=== PATIENT | male | born 1960 | race Caucasian/White ===

== ENCOUNTER 2021-12-27 06:03 | Day surgery (SDC) | payer OTHER, SELFPAY ==
[2021-12-27] VITALS (9 sets, daily range): BP systolic 107–167; BP diastolic 61–86; PULSE 69–88; RESP 18–22; TEMP 36.2–37; O2SAT 95–100; BMI 31.9; BMI 31.4
--- NOTE | ~2021-12-27 | FL_ITS ---
EXAMINATION: Intraoperative fluoroscopy CLINICAL INFORMATION: Cystoscopy and stent placement COMPARISON: CT abdomen pelvis December 27, 2021 TECHNIQUE: Intraoperative fluoroscopy was provided for use by Dr. Bob. A total of 2 images were saved to PACS. A radiologist was not present during imaging. Today's dictation is only for administrative purposes to document intraoperative fluoroscopic usage. TOTAL FLUOROSCOPIC TIME: 28 seconds FL/FL guidance in OR FINDINGS~\^^ Intraoperative fluoroscopy provided for use by Dr. Bob. Please see operative note for detailed findings.
--- NOTE | ~2021-12-27 | CT_ITS ---
EXAMINATION: CT ABDOMEN AND PELVIS WITHOUT CONTRAST CLINICAL INFORMATION: Left flank pain. Evaluate for stone. COMPARISON: None TECHNIQUE: Multidetector volumetric imaging was performed from the superior aspect of the liver through the pubic symphysis. Sagittal and coronal reformatted images were obtained on the technologist's workstation. This CT examination was performed using dose optimization techniques as appropriate, variously including the following: *Automated exposure control *Adjustment of mA and/or kV according to patient size (this includes techniques or standardized protocols for targeted exams where dose is matched to indication/reason for exam; i.e. extremities or head) *Use of iterative reconstruction technique DLP: 669 mGy-cm FINDINGS: LUNG BASES: Scattered calcified pleural plaques of each hemithorax could be sequela of remote asbestos exposure. There appears to be a small, normal-sized lymph node along the distal left major fissure. No pleural effusion. LIVER: The liver has normal size, shape, and attenuation. No evidence of liver mass. GALLBLADDER AND BILIARY TREE: Gallbladder has a few calcified stones. No gallbladder wall thickening or pericholecystic fluid. No dilated bile ducts. PANCREAS: Normal. No edema, pancreatic ductal dilatation or mass. SPLEEN: Normal. ADRENAL GLANDS: Normal. KIDNEYS AND URETERS: Kidneys are normal in size. 0.7 cm cortical cyst of the lower pole of the right kidney has a simple appearance on these noncontrast images. No renal imaging follow-up is recommended for a simple cyst. Aulz-yb-cztjnhpj left hydronephrosis and perinephric edema are caused by a 0.6 cm stone within the proximal ureter near level of ureteropelvic junction. BLADDER: No significant urinary bladder findings on this noncontrast examination. A punctate calcification is observed along the anterior bladder wall. BOWEL AND PERITONEUM: Stomach is unremarkable. No dilated loops of bowel. The appendix is normal. No overt bowel wall thickening or mesenteric fat stranding. No free fluid or pneumoperitoneum. ABDOMINAL WALL: A very small fat-containing umbilical hernia is noted. VASCULATURE: Mild atherosclerosis of the abdominal aorta without aneurysm. LYMPH NODES: There are deep inguinal lymph nodes that measure 1 cm short axis dimension on the right and 1.2 cm on the left. A left external iliac lymph node has a short axis measurement of 1 cm and a left common iliac lymph node 0.8 cm. No pathologic sized lymph nodes in the retroperitoneum. PELVIC VISCERA: Prostate gland is grossly unremarkable. No pelvic free fluid. Multiple phleboliths are present in the lower pelvis. SKELETAL: Chondrocalcinosis of the pubic symphysis, hips and lumbar spine. Mild osteoarthritis of the hips. No acute abnormalities in the mildly degenerated spine. CT/CT abdomen pelvis wo IV con IMPRESSION: * Ddjy-bd-feaamtwv left hydronephrosis and perinephric edema are caused by a 0.6 cm stone of the proximal ureter near level of the ureteropelvic junction. * Within the visualized lung bases, there are calcified pleural plaques, which are likely sequela of remote asbestos exposure. No pleural effusion. * The finding of mild deep inguinal and mild iliac lymphadenopathy is of questionable significance.
--- OUTSIDE RECORDS SUMMARY | 2021-12-27 06:58 | XMS_ITS | Continuity of Care Document ---
:1960 Author Organization [facility] Adult Address [address] [place] [address]- Care Team Providers Name Role Phone Mitra ROBERTSON, Rashmi Primary Care Physician [facility] Date(s): 07/17/20 - 08/16/20 [facility] [address] [place] [address]- Allergies, Adverse Reactions, Alerts Substance Reaction Severity Status NKA Active Immunizations Given and Recorded Vaccine Date Status Refusal Reason Influenza Virus Vaccine (oldterm) 11/12/17 Recorded influenza virus vaccine, inactivated 12/28/16 Recorded influenza virus vaccine, inactivated1 03/10/16 Given influenza virus vaccine, inactivated 03/24/15 Given tetanus/diphtheria/pertussis, acel(Tdap) 12/16/16 Given 1Admin Note: joshua and ircardo Medications acetaminophen-hydrocodone 325 mg-10 mg oral tablet 1 tablet, By Mouth, Every 6 hours, PRN for pain, FINANCIAL OPERATIONS ANALYST checked, # 112 tablet, 0 Refills, Maintenance, 08/14/20 16:23:00 EDT, Tablet, [facility] #[id number], may partial fill upon patient request, 1 tablet By Mouth Every 6 hours,x28 days,PRN:for rolf... Start Date: 08/14/20 Stop Date: 09/11/20 Status: Orderedacetaminophen-hydrocodone 325 mg-10 mg oral tablet 1 tablet, By Mouth, Every 6 hours, PRN for pain, OPIATE AGREEMENT DX:M517.0 FINANCIAL OPERATIONS ANALYST checked, # 112 tablet, 0 Refills, Maintenance, 09/24/18 9:17:12 EDT, Tablet, 1 tablet By Mouth Every 6 hours,x28 days,PRN:for pain,Instr:OPIATE AGREEMENT; DX:M517.0; FINANCIAL OPERATIONS ANALYST... Start Date: 09/24/18 Stop Date: 10/22/18 Status: Orderedamoxicillin 500 mg oral capsule 4 capsule = 2,000 mg, By Mouth, Once, Take 4 capsules, one hour before procedure appointment, # 4 capsule, 0 Refills, Soft Stop, 10/22/18 15:13:43 EDT Start Date: 10/22/18 Status: OrderedCPAP CPAP, See Instructions, # 1 each, Refills 0, Tot. Refills 0, Maintenance, dx Obstructive sleep apneadisp i CPAP setting 10 cm heated humidifer comp;iance data capable following [facility] ALL SUPPLIES X 1 YEar, 07/22/15 16:54:17, Compound Start Date: 07/22/15 Status: Orderedhydrocortisone 2.5% topical cream 1 application, Topically, 3 times a day, # 60 Gm, 1 Refills, Maintenance, 10/21/15 9:36:51, Cream, 1application Topically 3 times a day,x30 days Start Date: 10/21/15 Stop Date: 12/20/15 Status: Orderedketoconazole 2% topical cream 1 application, Topically, Daily, # 60 Gm, 1 Refills, Maintenance, 01/17/20 17:34:00 EST, Cream, [facility] #[id number], Partial fill upon patient request, 1 application Topically Daily,x30 days, 170, cm, 09/10/19 8:38:00 EDT, Height, 88.3, kg, 06... Start Date: 01/17/20 Stop Date: 03/17/20 Status: OrderedLevoxyl 0.175 mg oral tablet 1 tablet = 175 mcg, By Mouth, Daily, # 90 tablet, 0 Refills, Maintenance, 06/22/20 17:53:00 EDT, Tablet, [facility], Partial fill upon patient request if the prescription is for a schedule II opioid drug., 170, cm, 09/10/19 8:38:00... Start Date: 06/22/20 Stop Date: 09/20/20 Status: Ordered Problem List Condition Effective Dates Status Health Status Informant Abnormal findings on diagnostic Active imaging of lung(Confirmed) Hypothyroidism NOS(Confirmed) Active IBS - Irritable bowel Active syndrome(Confirmed) GAYLE on CPAP(Confirmed) Active Osteoarthritis of both Active knees(Confirmed) [facility]P 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
--- OUTSIDE RECORDS SUMMARY | 2021-12-27 06:58 | XMS_ITS | Continuity of Care Document ---
:1960 Author Organization [facility] Adult Address [address] [place] [address]- Care Team Providers Name Role Phone Mitra ROBERTSON, Rashmi Primary Care Physician [facility] Date[facility]s): 03/19/20 - 04/18/20 [facility] [address] [place] [address]- Allergies, Adverse Reactions, Alerts Substance Reaction Severity Status NKA Active Immunizations Given and Recorded Vaccine Date Status Refusal Reason Influenza Virus Vaccine (oldterm) 11/12/17 Recorded influenza virus vaccine, inactivated 12/28/16 Recorded influenza virus vaccine, inactivated1 03/10/16 Given influenza virus vaccine, inactivated 03/24/15 Given tetanus/diphtheria/pertussis, acel(Tdap) 12/16/16 Given 1Admin Note: joshua and ricardo Medications acetaminophen-hydrocodone 325 mg-10 mg oral tablet 1 tablet, By Mouth, Every 6 hours, PRN for pain, OPIATE AGREEMENT DX:M517.0 HEAD TENNIS COACH checked, # 112 tablet, 0 Refills, Maintenance, 09/24/18 9:17:12 EDT, Tablet, 1 tablet By Mouth Every 6 hours,x28 days,PRN:for pain,Instr:OPIATE AGREEMENT; DX:M517.0; HEAD TENNIS COACH... Start Date: 09/24/18 Stop Date: 10/22/18 Status: Orderedacetaminophen-hydrocodone 325 mg-10 mg oral tablet 1 tablet, By Mouth, Every 6 hours, PRN for pain, HEAD TENNIS COACH checked, # 112 tablet, 0 Refills, Maintenance, 03/20/20 9:13:00 EST, Tablet, [facility] #[id number], may partial fill upon patient request, 1 tablet By Mouth Every 6 hours,x28 days,PRN:for pain... Start Date: 03/20/20 Stop Date: 04/17/20 Status: Orderedamoxicillin 500 mg oral capsule 4 [...] 1 Refills, Maintenance, 01/17/20 17:34:00 EST, Cream, [facility] #[id number], Partial fill upon patient request, 1 application Topically Daily,x30 days, 170, cm, 09/10/19 8:38:00 EDT, Height, 88.3, kg, 06... Start Date: 01/17/20 Stop Date: 03/17/20 Status: OrderedLevoxyl 0.2 mg oral tablet 1 tablet = 200 mcg, By Mouth, Daily, # 90 tablet, 0 Refills, Maintenance, 01/17/20 16:02:00 EST, Tablet, [facility], 170, cm, 09/10/19 8:38:00 EDT, Height, 88.3, kg, 08/24/18 7:58:00 EDT, Dry Weight Start Date: 01/17/20 Status: Ordered Problem List Condition Effective Dates Status Health Status Informant Abnormal findings on diagnostic Active imaging of lung(Confirmed) Hypothyroidism NOS(Confirmed) Active IBS - Irritable bowel Active syndrome(Confirmed) GAYLE on CPAP(Confirmed) Active Osteoarthritis of both Active knees(Confirmed) 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
--- OUTSIDE RECORDS SUMMARY | 2021-12-27 06:58 | XMS_ITS | Continuity of Care Document ---
:1960 Author Organization [facility] Adult Address [address] [place] [address]- Care Team Providers Name Role Phone Mitra ROBERTSON, Rashmi Primary Care Physician [facility]): 11/22/19 - 12/22/19 [facility] [address] [place] [id number] Allergies, Adverse Reactions, Alerts Substance Reaction Severity [...] Mouth, Every 6 hours, PRN for pain, BLACK JACK DEALER checked, # 112 tablet, 0 Refills, Maintenance, 12/20/19 17:20:00 EDT, Tablet, [facility] #[id number], may partial fill upon patient request, 1 tablet By Mouth Every 6 hours,x28 days,PRN:for rolf... Start Date: 12/20/19 Stop Date: 01/17/20 Status: Orderedacetaminophen-hydrocodone 325 mg-10 mg oral tablet 1 tablet, By Mouth, Every 6 hours, PRN for pain, OPIATE AGREEMENT DX:M517.0 BLACK JACK DEALER checked, # 112 tablet, 0 Refills, Maintenance, 09/24/18 9:17:12 EDT, Tablet, 1 tablet By Mouth Every 6 hours,x28 days,PRN:for pain,Instr:OPIATE AGREEMENT; DX:M517.0; BLACK JACK DEALER... Start Date: 09/24/18 Stop Date: 10/22/18 Status: [...] Start Date: 10/21/15 Stop Date: 12/20/15 Status: OrderedLevoxyl 0.2 mg oral tablet 1 tablet = 200 mcg, By Mouth, Daily, # 90 tablet, 1 Refills, Maintenance, 10/21/19 15:14:00 EDT, Tablet, [email or web address] #[id number], 170, cm, 09/10/19 8:38:00 EDT, Height, 88.3, kg, 08/24/18 7:58:00 EDT, Dry Weight Start Date: 10/21/19 Status: Ordered Problem List Condition Effective Dates Status Health Status Informant Abnormal findings on diagnostic Active imaging of lung(Confirmed) Hypothyroidism NOS(Confirmed) Active IBS - Irritable bowel Active syndrome(Confirmed) GAYLE on CPAP(Confirmed) Active Osteoarthritis of both Active knees(Confirmed) residential 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
--- OUTSIDE RECORDS SUMMARY | 2021-12-27 06:58 | XMS_ITS | Continuity of Care Document ---
:1960 Author Organization [facility] Adult Address [address] [place] [address]- Care Team Providers Name Role Phone Mitra ROBERTSON, Rashmi Primary Care Physician [facility] Date[facility]s): 10/21/19 - 11/20/19 [facility] [address] [place] [address]- [facility] Allergies, Adverse Reactions, Alerts Substance Reaction Severity [...] Mouth, Every 6 hours, PRN for pain, MANAGER BANKING checked, # 112 tablet, 0 Refills, Maintenance, 11/20/19 17:40:00 EDT, Tablet, [facility] #[id number], may partial fill upon patient request, 1 tablet By Mouth Every 6 hours,PRN:for pain,Instr:P... Start Date: 11/20/19 Status: Orderedacetaminophen-hydrocodone 325 mg-10 mg oral tablet 1 tablet, By Mouth, Every 6 hours, PRN for pain, OPIATE AGREEMENT DX:M517.0 MANAGER BANKING checked, # 112 tablet, 0 Refills, Maintenance, 09/24/18 9:17:12 EDT, Tablet, 1 tablet By Mouth Every 6 hours,x28 days,PRN:for pain,Instr:OPIATE AGREEMENT; DX:M517.0; MANAGER BANKING... 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
--- OUTSIDE RECORDS SUMMARY | 2021-12-27 06:58 | XMS_ITS | Continuity of Care Document ---
:1960 Author Organization [facility] Adult Address [address] [place] [address]- Care Team Providers Name Role Phone Mitra MAT GAUGER, Rashmi Primary Care Physician [facility]s): 10/06/21 - 11/05/21 [facility] Adult [address] [place] [address]- Allergies, Adverse Reactions, Alerts Substance Reaction Severity Status Bactrim1 Active 1rash Immunizations Given and Recorded Vaccine Date Status Refusal Reason Influenza Virus Vaccine (oldterm) 11/12/17 Recorded influenza virus vaccine, inactivated 12/28/16 Recorded influenza virus vaccine, inactivated1 03/10/16 Given influenza virus vaccine, inactivated 03/24/15 Given tetanus/diphtheria/pertussis, acel(Tdap) 12/16/16 Given 1Admin Note: joshua and ricardo Medications acetaminophen-hydrocodone 325 mg-10 mg oral tablet 1 tablet, By Mouth, Every 6 hours, PRN for pain, OPIATE AGREEMENT DX:M517.0 MOTTLER OPERATOR checked, # 112 tablet, 0 Refills, Maintenance, 11/05/21 16:56:00 EDT, Tablet, [facility] #[id number], 1 tablet By Mouth Every 6 hours,x28 days,PRN:for pain,Instr:OP... Start Date: 11/05/21 Stop Date: 12/03/21 Status: Orderedamoxicillin 500 mg oral capsule 4 [...] 1 Refills, Maintenance, 01/17/20 17:34:00 EST, Cream, [facility] #[id number], Partial fill upon patient request, 1 application Topically Daily,x30 days, 170, cm, 09/10/19 8:38:00 EDT, Height, 88.3, kg, 06... Start Date: 01/17/20 Stop Date: 03/17/20 Status: OrderedLevoxyl 0.175 mg oral tablet 1 tablet = 175 mcg, By Mouth, Daily, # 90 tablet, 0 Refills, Maintenance, 08/05/21 13:26:00 EDT, Tablet, [facility], Partial fill upon patient request if the prescription is for a schedule II opioid drug., 170, cm, 09/10/19 8:38:00... Start Date: 08/05/21 Stop Date: 11/03/21 Status: Orderedtriamcinolone 0.025% topical ointment 1 application, Topically, 2 times a day, # 60 Gm, 1 Refills, Maintenance, 11/21/20 9:09:00 EDT, Ointment, [facility] #[id number], Partial fill upon patient request if the prescription is for a schedule II opioid drug., 1 application Topically 2 t... Start Date: 11/21/20 Stop Date: 12/19/20 Status: Ordered Problem List Condition Effective Dates Status Health Status Informant Abnormal findings on diagnostic Active imaging of lung(Confirmed) Hypothyroidism NOS(Confirmed) Active IBS - Irritable bowel Active syndrome(Confirmed) GAYLE on CPAP(Confirmed) Active Osteoarthritis of both Active knees(Confirmed) senior care 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 Care Team PersonnelName: Rashmi Manriquez NP Address: [address] [place] [address], [address] [place], [place] [address]
--- OUTSIDE RECORDS SUMMARY | 2021-12-27 06:58 | XMS_ITS | Continuity of Care Document ---
:1960 Author Organization [facility] Adult Address [address] [place] [address]- Care Team Providers Name Role Phone Mitra ROBERTSON, Rashmi Primary Care Physician [facility] Date(s): 01/17/20 - 02/16/20 [facility] [address] [place] [address]- Allergies, Adverse Reactions, Alerts Substance Reaction Severity [...] hours, PRN for pain, OPIATE AGREEMENT DX:M517.0 PIPING DRAFTER checked, # 112 tablet, 0 Refills, Maintenance, 09/24/18 9:17:12 EDT, Tablet, 1 tablet By Mouth Every 6 hours,x28 days,PRN:for pain,Instr:OPIATE AGREEMENT; DX:M517.0; PIPING DRAFTER... Start Date: 09/24/18 Stop Date: 10/22/18 Status: Orderedacetaminophen-hydrocodone 325 mg-10 mg oral tablet 1 tablet, By Mouth, Every 6 hours, PRN for pain, PIPING DRAFTER checked, # 112 tablet, 0 Refills, Maintenance, 01/17/20 17:01:00 EST, Tablet, [facility] #[id number], may partial fill upon patient request, 1 tablet By Mouth Every 6 hours,x28 days,PRN:for rolf... 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
--- OUTSIDE RECORDS SUMMARY | 2021-12-27 06:58 | XMS_ITS | Continuity of Care Document ---
:1960 Author Organization [facility] Adult Address [address] [place] [address]- Care Team Providers Name Role Phone Mitra ROBERTSON, Rashmi Primary Care Physician Encounter [facility] Date(s): 06/18/20 - 07/18/20 [facility] [address] [place] [address]- Allergies, Adverse Reactions, Alerts Substance Reaction Severity [...] Mouth, Every 6 hours, PRN for pain, MARINE ENGINE MECHANIC checked, # 112 tablet, 0 Refills, Maintenance, 07/17/20 17:01:00 EDT, Tablet, [facility] #[id number], may partial fill upon patient request, 1 tablet By Mouth Every 6 hours,x28 days,PRN:for rolf... Start Date: 07/17/20 Stop Date: 08/14/20 Status: Orderedacetaminophen-hydrocodone 325 mg-10 mg oral tablet 1 tablet, By Mouth, Every 6 hours, PRN for pain, OPIATE AGREEMENT DX:M517.0 MARINE ENGINE MECHANIC checked, # 112 tablet, 0 Refills, Maintenance, 09/24/18 9:17:12 EDT, Tablet, 1 tablet By Mouth Every 6 hours,x28 days,PRN:for pain,Instr:OPIATE AGREEMENT; DX:M517.0; MARINE ENGINE MECHANIC... 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
--- OUTSIDE RECORDS SUMMARY | 2021-12-27 06:58 | XMS_ITS | Continuity of Care Document ---
:1960 Author Organization [facility] Adult Address [address] [place] [address]- Care Team Providers Name Role Phone Mitra ROBERTSON, Rashmi Primary Care Physician [facility] Date[facility]s): 04/20/20 - 05/20/20 [facility] [address] [place] [address]- Allergies, Adverse Reactions, Alerts Substance Reaction Severity [...] hours, PRN for pain, OPIATE AGREEMENT DX:M517.0 WARP PREPARER checked, # 112 tablet, 0 Refills, Maintenance, 09/24/18 9:17:12 EDT, Tablet, 1 tablet By Mouth Every 6 hours,x28 days,PRN:for pain,Instr:OPIATE AGREEMENT; DX:M517.0; WARP PREPARER... Start Date: 09/24/18 Stop Date: 10/22/18 Status: Orderedacetaminophen-hydrocodone 325 mg-10 mg oral tablet 1 tablet, By Mouth, Every 6 hours, PRN for pain, WARP PREPARER checked, # 112 tablet, 0 Refills, Maintenance, 05/18/20 15:20:00 EDT, Tablet, [facility] #[id number], may partial fill upon patient request, 1 tablet By Mouth Every 6 hours,x28 days,PRN:for rolf... Start Date: 05/18/20 Stop Date: 06/15/20 Status: Orderedamoxicillin 500 mg oral capsule 4 [...] 1 Refills, Maintenance, 01/17/20 17:34:00 EST, Cream, [facility] #[id number], Partial fill upon patient request, 1 application Topically Daily,x30 days, 170, cm, 09/10/19 8:38:00 EDT, Height, 88.3, kg, 06... Start Date: 01/17/20 Stop Date: 03/17/20 Status: OrderedLevoxyl 0.2 mg oral tablet 1 tablet = 200 mcg, By Mouth, Daily, # 90 tablet, 0 Refills, Maintenance, 04/23/20 8:21:00 EST, Tablet, [facility] #[id number], 170, cm, 09/10/19 8:38:00 EDT, Height, 88.3, kg, 08/24/18 7:58:00 EDT, Dry Weight Start Date: 04/23/20 Status: Ordered Problem List Condition Effective Dates Status Health Status Informant Abnormal findings on diagnostic Active imaging of lung(Confirmed) Hypothyroidism NOS(Confirmed) Active IBS - Irritable bowel Active syndrome(Confirmed) GAYLE on CPAP(Confirmed) Active Osteoarthritis of both Active knees(Confirmed) shelter 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
--- OUTSIDE RECORDS SUMMARY | 2021-12-27 06:59 | XMS_ITS | Continuity of Care Document ---
:1960 Author Organization [facility] Adult Address [address] [place] [address]- Care Team Providers Name Role Phone Mitra ASSOCIATE LOAN OFFICER, Rashmi Primary Care Physician Encounter [facility] Date(s): 08/04/21 - 09/03/21 [facility] [address] [place] [address]- Allergies, Adverse Reactions, Alerts Substance Reaction Severity [...] hours, PRN for pain, OPIATE AGREEMENT DX:M517.0 CONTINUING EDUCATION SPECIALIST checked, # 112 tablet, 0 Refills, Maintenance, 08/06/21 20:05:00 EDT, Tablet, [facility] #[id number], 1 tablet By Mouth Every 6 hours,x28 days,PRN:for pain,Instr:OP... Start Date: 08/06/21 Stop Date: 09/03/21 Status: Orderedamoxicillin 500 mg oral capsule 4 [...] 1 Refills, Maintenance, 01/17/20 17:34:00 EST, Cream, [facility] #[id number], Partial fill upon patient request, 1 application [...] 1 Refills, Maintenance, 11/21/20 9:09:00 EDT, Ointment, [facility] #[id number], Partial fill upon patient request if the prescription is for a schedule II opioid drug., 1 application Topically 2 t... 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
--- OUTSIDE RECORDS SUMMARY | 2021-12-27 06:59 | XMS_ITS | Continuity of Care Document ---
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 Start Date: 12/20/19 Stop Date: 01/17/20 Status: Orderedacetaminophen-hydrocodone 325 mg-10 mg oral tablet 1 tablet, By Mouth, Every 6 hours, PRN for pain, OPIATE AGREEMENT DX:M517.0 BEAUTY SCHOOL INSTRUCTOR checked, # 112 tablet, 0 Refills, Maintenance, 09/24/18 9:17:12 EDT, Tablet, 1 tablet By Mouth Every 6 hours,x28 days,PRN:for pain,Instr:OPIATE AGREEMENT; DX:M517.0; BEAUTY SCHOOL INSTRUCTOR... Start Date: 09/24/18 Stop Date: 10/22/18 Status: [...] 1 Refills, Maintenance, 10/21/19 15:14:00 EDT, Tablet, [facility] #[id number], 170, cm, 09/10/19 8:38:00 EDT, Height, 88.3, kg, 08/24/18 7:58:00 EDT, Dry Weight Start Date: 10/21/19 Status: Ordered Problem List Condition Effective Dates Status Health Status Informant Abnormal findings on diagnostic Active imaging of lung(Confirmed) Hypothyroidism NOS(Confirmed) Active IBS - Irritable bowel Active syndrome(Confirmed) GAYLE on CPAP(Confirmed) Active Osteoarthritis of both Active knees(Confirmed) group home 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
--- OUTSIDE RECORDS SUMMARY | 2021-12-27 06:59 | XMS_ITS | Continuity of Care Document ---
:1960 Author Organization [facility] Adult Address [address] [place] [address]- Care Team Providers Name Role Phone Mitra ROBERTSON, Rashmi Primary Care Physician [facility]counter [facility] Date(s): 12/30/20 - 01/29/21 [facility] [address] [place] [address]- Allergies, Adverse Reactions, Alerts Substance Reaction Severity [...] hours, PRN for pain, OPIATE AGREEMENT DX:M517.0 STRETCH BOX TENDER checked, # 112 tablet, 0 Refills, Maintenance, 01/11/21 12:22:00 EST, Tablet, [facility] #[id number], 1 tablet By Mouth Every 6 hours,x28 days,PRN:for pain,Instr:OP... Start Date: 01/11/21 Stop Date: 02/08/21 Status: Orderedamoxicillin 500 mg oral capsule 4 [...] 1 Refills, Maintenance, 01/17/20 17:34:00 EST, Cream, [facility] #[id number], Partial fill upon patient request, 1 application Topically Daily,x30 days, 170, cm, 09/10/19 8:38:00 EDT, Height, 88.3, kg, 06... Start Date: 01/17/20 Stop Date: 03/17/20 Status: OrderedLevoxyl 0.175 mg oral tablet See Instructions, TAKE 1 TABLET DAILY, # 90 tablet, 3 Refills, [facility], 170, cm, 09/10/19 8:38:00 EDT, Height Start Date: 12/31/20 Status: OrderedLevoxyl 0.175 mg oral tablet 1 tablet = 175 mcg, By Mouth, Daily, # 90 tablet, 0 Refills, Maintenance, 09/18/20 16:34:00 EDT, Tablet, [facility], Partial fill upon patient request if the prescription is for a schedule II opioid drug., 170, cm, 09/10/19 8:38:00... Start Date: 09/18/20 Stop Date: 12/17/20 Status: Orderedtriamcinolone 0.025% topical ointment 1 application, Topically, 2 times a day, # 60 Gm, 1 Refills, Maintenance, 11/21/20 9:09:00 EDT, Ointment, [facility] #[id number], Partial fill upon patient request if the prescription is for a schedule II opioid drug., 1 application Topically 2 t... Start Date: 11/21/20 Stop Date: 12/19/20 Status: Ordered Problem List Condition Effective Dates Status Health Status Informant Abnormal findings on diagnostic Active imaging of lung(Confirmed) Hypothyroidism NOS(Confirmed) Active IBS - Irritable bowel Active syndrome(Confirmed) GAYLE on CPAP(Confirmed) Active Osteoarthritis of both Active knees(Confirmed) longterm 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
--- OUTSIDE RECORDS SUMMARY | 2021-12-27 06:59 | XMS_ITS | Continuity of Care Document ---
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 Start Date: 09/24/18 Stop Date: 10/22/18 Status: [...] Daily, # 90 tablet, 0 Refills, Maintenance, 04/19/19 15:01:00 EST, Tablet, [facility], 170, cm, 12/25/18 9:47:00 EDT, Height, 88.3, kg, 08/24/18 7:58:00 EDT, Dry Weight Start Date: 04/19/19 Stop Date: 05/19/19 Status: Ordered Problem List Condition Effective Dates Status Health Status Informant Abnormal findings on diagnostic Active imaging of lung(Confirmed) Hypothyroidism NOS(Confirmed) Active IBS - Irritable bowel Active syndrome(Confirmed) GAYLE on CPAP(Confirmed) Active Osteoarthritis of both Active knees(Confirmed) pet handler 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(Confirmed) Screening colonoscopy(Confirmed) Active Diagnosis Diagnosis Type Effective Dates Health Clinical Infor mant Status Service shelter Discharge 04/30/19 prescription opiate Diagnosis use Hypothyroidism NOS Discharge 04/30/19 Diagnosis Osteoarthritis of Discharge 04/30/19 both knees Diagnosis Procedures Procedure Date Related Diagnosis Body Site Status Total replacement of right knee joint Completed Vital Signs Most recent to oldest [Reference Range]: 1 Height 170 cm (04/30/19 9:50 AM) Weight 92.0 kg (04/30/19 9:50 AM) Oxygen Saturation [94-100 %] 98 % (04/30/19 9:50 AM) Pulse Rate [55-90 bpm] 69 bpm (04/30/19 9:50 AM) Body Mass Index [18.5-24.99] 31.83 *>HHI* (04/30/19 9:50 AM) Blood Pressure [90-138/55-84 mm Hg] 120/70 mm Hg (04/30/19 9:50 AM) Blood pressure sites Arm, right (04/30/19 9:50 AM) Temperature Route Oral (04/30/19 9:50 AM) Weight Obtained Via Standing scale (04/30/19 9:50 AM) Social History Social History Type Response Smoking Status Never smoker; Tobacco user i n household: No entered on: 06/10/14 Sex
--- OUTSIDE RECORDS SUMMARY | 2021-12-27 06:59 | XMS_ITS | Continuity of Care Document ---
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, # 112 tablet, 0 Refills, Maintenance, 08/06/21 20:05:00 EDT, Tablet, [facility] #[id number], 1 tablet By Mouth Every 6 hours,x28 [...] 1 Refills, Maintenance, 01/17/20 17:34:00 EST, Cream, [facility] #[id number], Partial fill upon patient request, 1 application [...] 1 Refills, Maintenance, 11/21/20 9:09:00 EDT, Ointment, [facility] #[id number], Partial fill upon patient request if the [...] Active Osteoarthritis of both Active knees(Confirmed) 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
--- OUTSIDE RECORDS SUMMARY | 2021-12-27 06:59 | XMS_ITS | Continuity of Care Document ---
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 Start Date: 05/10/21 Stop Date: 06/07/21 Status: Orderedamoxicillin 500 mg oral capsule 4 [...] 1 Refills, Maintenance, 01/17/20 17:34:00 EST, Cream, [email or web address] #[id number], Partial fill upon patient request, 1 application [...] 1 Refills, Maintenance, 11/21/20 9:09:00 EDT, Ointment, [email or web address] #[id number], Partial fill upon patient request if the prescription is for a schedule II opioid drug., 1 application Topically 2 t... Start Date: 11/21/20 Stop Date: 12/19/20 Status: Ordered Problem List Condition Effective Dates Status Health Status Informant Abnormal findings on diagnostic Active imaging of lung(Confirmed) Hypothyroidism NOS(Confirmed) Active IBS - Irritable bowel Active syndrome(Confirmed) GAYLE on CPAP(Confirmed) Active Osteoarthritis of both Active knees(Confirmed) halfway 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
--- OUTSIDE RECORDS SUMMARY | 2021-12-27 06:59 | XMS_ITS | Continuity of Care Document ---
:1960 Author Organization [facility] Address [address] [place] [address]- Care Team Providers Name Role Phone Mitra ROBERTSON, Rashmi Primary Care Physician Encounter [facility] Date(s): 05/27/20 - 06/26/20 [facility] [address] [place] [address]- Allergies, Adverse Reactions, Alerts Substance Reaction Severity [...] Mouth, Every 6 hours, PRN for pain, SERVICE STATION MANAGER checked, # 112 tablet, 0 Refills, Maintenance, 06/18/20 15:47:00 EDT, Tablet, [facility] #[id number], may partial fill upon patient request, 1 tablet By Mouth Every 6 hours,x28 days,PRN:for rolf... 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 Start Date: 09/24/18 Stop Date: 10/22/18 Status: [...] 1 Refills, Maintenance, 01/17/20 17:34:00 EST, Cream, [facility] #[id number], Partial fill upon patient request, 1 application [...] CPAP(Confirmed) Active Osteoarthritis of both Active knees(Confirmed) custodial 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
--- OUTSIDE RECORDS SUMMARY | 2021-12-27 06:59 | XMS_ITS | Continuity of Care Document ---
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 Start Date: 09/11/20 Stop Date: 10/09/20 Status: Orderedamoxicillin 500 mg oral capsule 4 [...] 1 Refills, Maintenance, 01/17/20 17:34:00 EST, Cream, [facility] #[id number], Partial fill upon patient request, 1 application [...] Start Date: 09/18/20 Stop Date: 12/17/20 Status: Ordered Problem List Condition Effective Dates Status Health Status Informant Abnormal findings on diagnostic Active imaging of lung(Confirmed) Hypothyroidism NOS(Confirmed) Active IBS - Irritable bowel Active syndrome(Confirmed) GAYLE on CPAP(Confirmed) Active Osteoarthritis of both Active knees(Confirmed) meterman 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
--- OUTSIDE RECORDS SUMMARY | 2021-12-27 06:59 | XMS_ITS ---
:1960 Author Care Team Providers Name Role Phone ALEAH LINO MARCELO Primary Care Provider [phone] Allergies Code Code System Name Reaction Severity Status Onset NKDA ? Medications Name Status Start Date Stop Date ? ? amoxicillin 875 mg-potassium clavulanate 125 mg Completed ? 01/10/2018 tablet chlorhexidine gluconate 4 % topical liquid Completed ? 01/10/2018 use to WASH affected area once daily diclofenac sodium 50 mg tablet,delayed release Completed ? 01/10/2018 GaviLyte-N 420 gram oral solution Completed ? 01/10/2018 hydrocodone 10 mg-acetaminophen 325 mg tablet Active Not available indomethacin 25 mg capsule Completed ? 01/10 levothyroxine 200 mcg tablet Active ? Not available sulfamethoxazole 800 mg-trimethoprim 160 mg Completed ? 01/10/2018 tablet Problems None recorded. Procedures Date Name Performed by ? 02/27/2014 Other Information not avai lable Notes: Hernia 02/27/2011 Orthopaedic Surgery Information not avai lable Notes: R Knee meniscus repair 12/27/2017 XR, Knee Information not avai lable Results Lab Results None recorded. Past Encounters None recorded. Social History Tobacco Smoking Status Never Smoker Vaccine List None recorded. Plan of Care Reminders Provider Appointments None recorded. ? ? Lab None recorded. ? ? Referral None recorded. ? ? Procedures None recorded. ? ? Surgeries None recorded. ? ? Imaging None recorded. ? ? Vitals Height Weight BMI 5 ft 5 in 198 lbs 32.9 kg/m2
--- OUTSIDE RECORDS SUMMARY | 2021-12-27 06:59 | XMS_ITS | Continuity of Care Document ---
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 Start Date: 03/12/21 Stop Date: 04/09/21 Status: Orderedamoxicillin 500 mg oral capsule 4 [...] 1 Refills, Maintenance, 01/17/20 17:34:00 EST, Cream, [facility] #[id number], Partial fill upon patient request, 1 application [...] 1 Refills, Maintenance, 11/21/20 9:09:00 EDT, Ointment, [facility] #[id number], Partial fill upon patient request if the prescription is for a schedule II opioid drug., 1 application Topically 2 t... 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
--- OUTSIDE RECORDS SUMMARY | 2021-12-27 06:59 | XMS_ITS | Continuity of Care Document ---
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 Start Date: 10/12/20 Stop Date: 11/09/20 Status: Orderedamoxicillin 500 mg oral capsule 4 [...] 1 Refills, Maintenance, 01/17/20 17:34:00 EST, Cream, [facility] #[id number], Partial fill upon patient request, 1 application [...] CPAP(Confirmed) Active Osteoarthritis of both Active knees(Confirmed) medical terminologist 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
--- OUTSIDE RECORDS SUMMARY | 2021-12-27 06:59 | XMS_ITS | Continuity of Care Document ---
:1960 Author Organization [facility] Adult Address [address] [place] [address]- Care Team Providers Name Role Phone Rashmi Manriquez NP Primary Care Physician Encounter [facility] Date(s): 07/19/19 - 08/18/19 [facility] [address] [place] [address] [facility] Attending Physician: Kim Cooper Admitting Physician: Kim Cooper Referring Physician: Kim Cooper Allergies, Adverse Reactions, Alerts Substance Reaction Severity [...] Mouth, Every 6 hours, PRN for pain, DELIVERY TRUCK DRIVER HEAVY checked, # 112 tablet, 0 Refills, Maintenance, 07/23/19 14:36:00 EDT, Tablet, [facility] #[id number], may partial fill upon patient request, 1 tablet By Mouth Every 6 hours,PRN:for pain,Instr:P... Start Date: 07/23/19 Status: Orderedacetaminophen-hydrocodone 325 mg-10 mg oral tablet 1 tablet, By Mouth, Every 6 hours, PRN for pain, OPIATE AGREEMENT DX:M517.0 DELIVERY TRUCK DRIVER HEAVY checked, # 112 tablet, 0 Refills, Maintenance, 09/24/18 9:17:12 EDT, Tablet, 1 tablet By Mouth Every 6 hours,x28 days,PRN:for pain,Instr:OPIATE AGREEMENT; DX:M517.0; DELIVERY TRUCK DRIVER HEAVY... 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
--- OUTSIDE RECORDS SUMMARY | 2021-12-27 06:59 | XMS_ITS | Continuity of Care Document ---
:1960 Author Organization [facility] Address [address] [place] [address]- Care Team Providers Name Role Phone Mitar SOCIAL MEDIA SR STRATEGY MANAGER, Rashmi Primary Care Physician [facility]counter [facility] Date(s): 05/10/21 - 06/09/21 [facility] [address] [place] [address]- Allergies, Adverse Reactions, Alerts Substance Reaction Severity [...] hours, PRN for pain, OPIATE AGREEMENT DX:M517.0 LENS GRINDER checked, # 112 tablet, 0 Refills, Maintenance, 05/10/21 17:34:00 EDT, Tablet, [facility] #[id number], 1 tablet By Mouth Every 6 hours,x28 [...] 1 Refills, Maintenance, 01/17/20 17:34:00 EST, Cream, [facility] #[id number], Partial fill upon patient request, 1 application [...] 1 Refills, Maintenance, 11/21/20 9:09:00 EDT, Ointment, [facility] #[id number], Partial fill upon patient request if the prescription is for a schedule II opioid drug., 1 application Topically 2 t... Start Date: 11/21/20 Stop Date: 12/19/20 Status: Ordered Problem List Condition Effective Dates Status Health Status Informant Abnormal findings on diagnostic Active imaging of lung(Confirmed) Hypothyroidism NOS(Confirmed) Active IBS - Irritable bowel Active syndrome(Confirmed) GAYLE on CPAP(Confirmed) Active Osteoarthritis of both Active knees(Confirmed) alf 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
--- OUTSIDE RECORDS SUMMARY | 2021-12-27 06:59 | XMS_ITS | Continuity of Care Document ---
:1960 Author Organization [facility] Address [address] [place] [address]- Care Team Providers Name Role Phone Rashmi Manriquez NP Primary Care Physician [place] [facility] Date(s): 09/10/19 - 09/17/19 [facility] [address] [place] [address] Attending Physician: Rashmi Manriquez NP Referring Physician: Galo DIEGO Ofelia Allergies, Adverse Reactions, Alerts Substance Reaction Severity [...] Mouth, Every 6 hours, PRN for pain, CLERICAL SUPERVISOR checked, # 112 tablet, 0 Refills, Maintenance, 08/22/19 13:17:00 EDT, Tablet, [facility] #[id number], may partial fill upon patient request, 1 tablet By Mouth Every 6 hours,PRN:for pain,Instr:P... Start Date: 08/22/19 Status: Orderedacetaminophen-hydrocodone 325 mg-10 mg oral tablet 1 tablet, By Mouth, Every 6 hours, PRN for pain, OPIATE AGREEMENT DX:M517.0 CLERICAL SUPERVISOR checked, # 112 tablet, 0 Refills, Maintenance, 09/24/18 9:17:12 EDT, Tablet, 1 tablet By Mouth Every 6 hours,x28 days,PRN:for pain,Instr:OPIATE AGREEMENT; DX:M517.0; CLERICAL SUPERVISOR... Start Date: 09/24/18 Stop Date: 10/22/18 Status: [...] CPAP(Confirmed) Active Osteoarthritis of both Active knees(Confirmed) skilled nursing 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(Confirmed) Screening colonoscopy(Confirmed) Active Vital Signs Most recent to oldest [Reference Range]: 1 Height 170 cm (09/10/19 8:38 AM) Social History Social History Type Response Smoking Status Never smoker; Tobacco user i n household: No entered on: 06/10/14 Sex
--- OUTSIDE RECORDS SUMMARY | 2021-12-27 06:59 | XMS_ITS | Continuity of Care Document ---
:1960 Author Organization [facility] Address [address] [place] [address]- Care Team Providers Name Role Phone Mitra ROBERTSON, Rashmi Primary Care Physician Encounter [facility] Date(s): 01/17/20 - 02/16/20 [facility] [address] [place] [address]- Allergies, Adverse Reactions, Alerts Substance Reaction Severity [...] hours, PRN for pain, OPIATE AGREEMENT DX:M517.0 HYPERION DEVELOPER checked, # 112 tablet, 0 Refills, Maintenance, 09/24/18 9:17:12 EDT, Tablet, 1 tablet By Mouth Every 6 hours,x28 days,PRN:for pain,Instr:OPIATE AGREEMENT; DX:M517.0; HYPERION DEVELOPER... 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
--- OUTSIDE RECORDS SUMMARY | 2021-12-27 06:59 | XMS_ITS | Continuity of Care Document ---
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 Start Date: 09/24/18 Stop Date: 10/22/18 Status: Orderedacetaminophen-hydrocodone 325 mg-10 mg oral tablet 1 tablet, By Mouth, Every 6 hours, PRN for pain, LOLLYPOP MACHINE OPERATOR checked, # 112 tablet, 0 Refills, Maintenance, 05/18/20 15:20:00 EDT, Tablet, [facility] #[id number], may partial fill upon patient request, 1 [...] 1 Refills, Maintenance, 01/17/20 17:34:00 EST, Cream, [facility] #[id number], Partial fill upon patient request, 1 application Topically Daily,x30 days, 170, cm, 09/10/19 8:38:00 EDT, Height, 88.3, kg, 06... Start Date: 01/17/20 Stop Date: 03/17/20 Status: OrderedLevoxyl 0.2 mg oral tablet 1 tablet = 200 mcg, By Mouth, Daily, # 90 tablet, 0 Refills, Maintenance, 04/23/20 8:21:00 EST, Tablet, [facility] #[id number], 170, cm, 09/10/19 8:38:00 EDT, Height, 88.3, kg, 08/24/18 7:58:00 EDT, Dry Weight Start Date: 04/23/20 Status: Ordered Problem List Condition Effective Dates Status Health Status Informant Abnormal findings on diagnostic Active imaging of lung(Confirmed) Hypothyroidism NOS(Confirmed) Active IBS - Irritable bowel Active syndrome(Confirmed) GAYLE on CPAP(Confirmed) Active Osteoarthritis of both Active knees(Confirmed) [facility] 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
--- OUTSIDE RECORDS SUMMARY | 2021-12-27 06:59 | XMS_ITS | Continuity of Care Document ---
:1960 Author Organization [facility] Adult Address [address] [place] [address]- Care Team Providers Name Role Phone Mitra ROBERTSON, Rashmi Primary Care Physician [facility] Date(s): 04/22/20 - 05/22/[address] 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 Start Date: 09/24/18 Stop Date: 10/22/18 Status: Orderedacetaminophen-hydrocodone 325 mg-10 mg oral tablet 1 tablet, By Mouth, Every 6 hours, PRN for pain, FACILITIES FLIGHT CHECK PILOT checked, # 112 tablet, 0 Refills, Maintenance, 05/18/20 15:20:00 EDT, Tablet, [facility] #[id number], may partial fill upon patient request, 1 [...] 1 Refills, Maintenance, 01/17/20 17:34:00 EST, Cream, [facility] #[id number], Partial fill upon patient request, 1 application Topically Daily,x30 days, 170, cm, 09/10/19 8:38:00 EDT, Height, 88.3, kg, 06... Start Date: 01/17/20 Stop Date: 03/17/20 Status: OrderedLevoxyl 0.2 mg oral tablet 1 tablet = 200 mcg, By Mouth, Daily, # 90 tablet, 0 Refills, Maintenance, 04/23/20 8:21:00 EST, Tablet, [facility] #[id number], 170, cm, 09/10/19 8:38:00 EDT, Height, 88.3, kg, 08/24/18 7:58:00 EDT, Dry Weight Start Date: 04/23/20 Status: Ordered Problem List Condition Effective Dates Status Health Status Informant Abnormal findings on diagnostic Active imaging of lung(Confirmed) Hypothyroidism NOS(Confirmed) Active IBS - Irritable bowel Active syndrome(Confirmed) GAYLE on CPAP(Confirmed) Active Osteoarthritis of both Active knees(Confirmed) assisted 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
--- OUTSIDE RECORDS SUMMARY | 2021-12-27 06:59 | XMS_ITS | Continuity of Care Document ---
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 Start Date: 02/18/20 Stop Date: 03/17/20 Status: Orderedamoxicillin 500 mg oral capsule 4 [...] 1 Refills, Maintenance, 01/17/20 17:34:00 EST, Cream, [facility] #[id number], Partial fill upon patient request, 1 application [...] CPAP(Confirmed) Active Osteoarthritis of both Active knees(Confirmed) [facility] 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
--- OUTSIDE RECORDS SUMMARY | 2021-12-27 06:59 | XMS_ITS | Continuity of Care Document ---
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
--- OUTSIDE RECORDS SUMMARY | 2021-12-27 06:59 | XMS_ITS | Continuity of Care Document ---
:1960 Author Organization [facility] Adult Address [address] [place] [address]- Care Team Providers Name Role Phone Mitra ROBERTSON, Rashmi Primary Care Physician [facility] Date(s): 09/20/19 - 10/20/19 [facility] Adult [address] [place] [address]- [facility] Allergies, Adverse Reactions, Alerts Substance Reaction [...] Mouth, Every 6 hours, PRN for pain, PEDIATRIC DENTIST checked, # 112 tablet, 0 Refills, Maintenance, 09/20/19 16:40:00 EDT, Tablet, [facility] #[id number], may partial fill upon patient request, 1 tablet By Mouth Every 6 hours,PRN:for pain,Instr:P... Start Date: 09/20/19 Status: Orderedacetaminophen-hydrocodone 325 mg-10 mg oral tablet 1 tablet, By Mouth, Every 6 hours, PRN for pain, OPIATE AGREEMENT DX:M517.0 PEDIATRIC DENTIST checked, # 112 tablet, 0 Refills, Maintenance, 09/24/18 9:17:12 EDT, Tablet, 1 tablet By Mouth Every 6 hours,x28 days,PRN:for pain,Instr:OPIATE AGREEMENT; DX:M517.0; PEDIATRIC DENTIST... 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
--- OUTSIDE RECORDS SUMMARY | 2021-12-27 06:59 | XMS_ITS | Continuity of Care Document ---
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
--- NOTE | 2021-12-27 07:17 | ED_ITS ---
HPI - Abdominal Pain General Chief Complaint: Abdominal Pain <Palomo Shay MD - Last Filed: 12/27/21 09:13> Stated Complaint: left side pain , unable to breathe <Palomo Shay MD - Last Filed: 12/27/21 09:13> Time Seen by Provider: 12/27/21 07:17 <Palomo Shay MD - Last Filed: 12/27/21 09:13> Source: patient <Palomo Shay MD - Last Filed: 12/27/21 09:13> Mode of arrival: ambulatory <Palomo Shay MD - Last Filed: 12/27/21 09:13> Limitations: no limitations <Palomo Shay MD - Last Filed: 12/27/21 09:13> History of Present Illness HPI narrative: Patient's history of shoulder with no significant past medical history had colonoscopy 2 years ago was normal since 21:00 yesterday having left flank pain with nausea vomiting multiple times no hematuria no urinary complaints patient's father has a history of kidney stones up but patient never had kidney stones before normal bowel movements no abdominal pain no testicular pain no fever or chills pain is sharp in character constant with getting worse in between <Palomo Shay MD - Last Filed: 12/27/21 09:13> Related Data Allergies/Adverse Reactions: Allergies Allergy/AdvReac Type Severity Reaction Status Date / Time No Known Allergies Allergy Verified 12/27/21 06:22 <Palomo Shay MD - Last Filed: 12/27/21 09:13> Review of Systems Review of Systems Yes all other systems are reviewed and are negative <Palomo Shay MD - Last Filed: 12/27/21 09:13> [facility] Social History Social History: Social History Advance Directives: No <Palomo Shay MD - Last Filed: 12/27/21 09:13> Physical Exam ED Vital Signs: Vital Signs - 24 hr 12/27/21 06:18 12/27/21 09:58 12/27/21 10:09 Temperature 98.6 F 97.8 F 98.0 F Pulse Rate 83 69 Respiratory Rate 22 H 18 Blood Pressure 167/86 H 109/61 Pulse Oximetry 100 95 Oxygen Delivery Method Room Air Room Air BMI result Body Mass Index 31.9 Appearance: Alert. Oriented X3. In moderate distress Eyes: PERRLA, No Nystagmus ENT: Pharynx normal. Oral Mucosa moist Neck: Normal inspection. Neck supple. CVS: Normal heart rate and rhythm. Pulses normal. Respiratory: No respiratory distress. Equal air entry bilateral, no wheezing/rales/rhonchi Abdomen: Soft and nontender. Bowel sounds are present, no mass palpable, left CVA tenderness ++ Skin: Skin warm and dry. Normal skin color. Normal skin turgor. Extremities: No lower extremity edema. No calf tenderness Neuro: Oriented X 3. No motor deficit. <Palomo Shay MD - Last Filed: 12/27/21 09:13> Vital Signs - 24 hr 12/27/21 06:18 12/27/21 09:58 12/27/21 10:09 Temperature 98.6 F 97.8 F 98.0 F Pulse Rate 83 69 Respiratory Rate 22 H 18 Blood Pressure 167/86 H 109/61 Pulse Oximetry 100 95 Oxygen Delivery Method Room Air Room Air BMI result Body Mass Index 31.9 <Gabbie Mederos MD - Last Filed: 12/27/21 10:51> Course Reevaluation(s) Reevaluation #1: Patient was a sign-out to me from Dr. Shay. I discussed case with Urology, Dr. Bob, who will review the CT scan and come by and see the patient. <Gabbie Mederos MD - Last Filed: 12/27/21 10:51> Time: 09:38 <Gabbie Mederos MD - Last Filed: 12/27/21 10:51> Reevaluation #2: Dr. Bob will be taking the patient to surgery. <Gabbie Mederos MD - Last Filed: 12/27/21 10:51> Time: 10:50 <Gabbie Mederos MD - Last Filed: 12/27/21 10:51> MDM - Abdominal Pain MDM Narrative Medical decision making narrative: CT scan showed 0.6cm stone at the ureteral pelvic junction with mild to moderate hydronephrosis patient is still in pain will give pain medication re- evaluate patient signed out to Dr. Mederos for further evaluation disposition <Palomo Shay MD - Last Filed: 12/27/21 09:13> Differential Diagnosis Differential diagnosis: Likely calculus of kidney <Palomo Shay MD - Last Filed: 12/27/21 09:13> Lab Data Attestation: I reviewed the patient's lab results. <Palomo Shay MD - Last Filed: 12/27/21 09:13> Result diagrams: : 12/27/21 07:30 12/27/21 07:30 <Palomo Shay MD - Last Filed: 12/27/21 09:13> Labs: Lab Results 12/27/21 12/27/21 12/27/21 Range/Units 07:30 07:30 10:02 WBC 7.7 (4.8-10.8) X10*3/uL RBC 4.82 (4.60-5.80) X10*6/uL Hgb 14.1 (14.0-18.0) g/dl Hct 42.6 (42.0-52.0) % MCV 88.4 (80.0-98.0) fL MCH 29.3 (27.0-33.0) pg MCHC 33.1 (31.0-36.0) g/dl RDW 12.6 (11.0-16.0) % Plt Count 207 (160-400) X10*3/uL MPV 10.1 (9.4-12.4) fL Immature Gran % (Auto) 0.3 (0.0-0.4) % Neut % (Auto) 86.2 H (45-73) % Lymph % (Auto) 9.5 L (20-40) % [place] % (Auto) 3.6 (2-11) % Eos % (Auto) 0.0 (0-4) % Baso % (Auto) 0.4 (0-2) % Lymph # (Auto) 0.7 L (1.2-4.9) X10*3/uL [place] # (Auto) 0.3 (0.1-1.2) X10*3/uL Eos # (Auto) 0.0 (0.0-0.4) X10*3/uL Baso # (Auto) 0.0 (0.0-0.2) X10*3/uL Abs Immat Gran (auto) 0.02 (0.00-0.03) X10*3/uL Absolute Neuts (auto) 6.7 (2.0-8.3) x10*3/uL Absolute Nucleated RBC 0.000 (0.0-0.012) X10*3/uL Nucleated RBC % (auto) 0.0 (0.0-0.2) /100WBC Sodium 141 (135-145) mmol/L Potassium 4.9 (3.3-5.1) mmol/L Chloride 103 (96-108) mmol/L Carbon Dioxide 25 (22-29) mmol/L Anion Gap 18 (12-20) BUN 16 (9-16) mg/dL Creatinine 1.02 (0.5-1.4) mg/dL Estim Creat Clear Calc 77.8 Estimated GFR > 60 Random Glucose 132 H (60-115) mg/dL Calcium 9.6 (8.4-10.2) mg/dL Total Bilirubin 1.3 H (0.0-1.0) mg/dL AST 21 (5-37) U/L ALT 7 (0-40) U/L Alkaline Phosphatase 62 (39-117) U/L Total Protein 7.8 (6.5-8.0) g/dL Albumin 4.5 (3.5-5.0) g/dL Lipase 17 (8-78) U/L COVID-19 (REFUGIO) Negative (Negative) COVID-19 Clin Com See Note <Palomo Shay MD - Last Filed: 12/27/21 09:13> Lab Results 12/27/21 12/27/21 12/27/21 Range/Units 07:30 07:30 10:02 WBC 7.7 (4.8-10.8) X10*3/uL RBC 4.82 (4.60-5.80) X10*6/uL Hgb 14.1 (14.0-18.0) g/dl Hct 42.6 (42.0-52.0) % MCV 88.4 (80.0-98.0) fL MCH 29.3 (27.0-33.0) pg MCHC 33.1 (31.0-36.0) g/dl RDW 12.6 (11.0-16.0) % Plt Count 207 (160-400) X10*3/uL MPV 10.1 (9.4-12.4) fL Immature Gran % (Auto) 0.3 (0.0-0.4) % Neut % (Auto) 86.2 H (45-73) % Lymph % (Auto) 9.5 L (20-40) % [place] % (Auto) 3.6 (2-11) % Eos % (Auto) 0.0 (0-4) % Baso % (Auto) 0.4 (0-2) % Lymph # (Auto) 0.7 L (1.2-4.9) X10*3/uL [place] # (Auto) 0.3 (0.1-1.2) X10*3/uL Eos # (Auto) 0.0 (0.0-0.4) X10*3/uL Baso # (Auto) 0.0 (0.0-0.2) X10*3/uL Abs Immat Gran (auto) 0.02 (0.00-0.03) X10*3/uL Absolute Neuts (auto) 6.7 (2.0-8.3) x10*3/uL Absolute Nucleated RBC 0.000 (0.0-0.012) X10*3/uL Nucleated RBC % (auto) 0.0 (0.0-0.2) /100WBC Sodium 141 (135-145) mmol/L Potassium 4.9 (3.3-5.1) mmol/L Chloride 103 (96-108) mmol/L Carbon Dioxide 25 (22-29) mmol/L Anion Gap 18 (12-20) BUN 16 (9-16) mg/dL Creatinine 1.02 (0.5-1.4) mg/dL Estim Creat Clear Calc 77.8 Estimated GFR > 60 Random Glucose 132 H (60-115) mg/dL Calcium 9.6 (8.4-10.2) mg/dL Total Bilirubin 1.3 H (0.0-1.0) mg/dL AST 21 (5-37) U/L ALT 7 (0-40) U/L Alkaline Phosphatase 62 (39-117) U/L Total Protein 7.8 (6.5-8.0) g/dL Albumin 4.5 (3.5-5.0) g/dL Lipase 17 (8-78) U/L COVID-19 (REFUGIO) Negative (Negative) COVID-19 Clin Com See Note <Gabbie Mederos MD - Last Filed: 12/27/21 10:51> Discharge Plan Discharge Clinical Impression: Calculus of kidney, Obstructed, uropathy <Palomo Shay MD - Last Filed: 12/27/21 09:13> Patient Disposition: Admitted As Inpatient <Palomo Shay MD - Last Filed: 12/27/21 09:13>
[2021-12-27 07:42] LABS: MANUAL DIFF FLAG NO
[2021-12-27 07:44] LABS: Basophils Percent Auto 0.4 % (0-2); Hematocrit 42.6 % (42.0-52.0); Hemoglobin 14.1 g/dl (14.0-18.0); Imm Gran Abs Auto 0.02 X10*3/uL (0.00-0.03); Imm Gran Pct Auto 0.3 % (0.0-0.4); Lymphocytes Absolute Auto 0.7 X10*3/uL (1.2-4.9); Lymphocytes Percent Auto 9.5 % (20-40); Mean Corpuscular HGB Conc 33.1 g/dl (31.0-36.0); Mean Corpuscular Hemoglobin 29.3 pg (27.0-33.0); Mean Corpuscular Volume 88.4 fL (80.0-98.0); Mean Platelet Volume 10.1 fL (9.4-12.4); Monocytes Absolute Auto 0.3 X10*3/uL (0.1-1.2); Monocytes Percent Auto 3.6 % (2-11); Neutrophils Absolute Auto 6.7 x10*3/uL (2.0-8.3); Neutrophils Percent Auto 86.2 % (45-73); Platelet Count 207 X10*3/uL (160-400); Red Blood Count 4.82 X10*6/uL (4.60-5.80); Red Cell Distribution Width 12.6 % (11.0-16.0); White Blood Count 7.7 X10*3/uL (4.8-10.8)
[2021-12-27 07:58] LABS: Alanine Aminotransferase 7 U/L (0-40); Albumin Level 4.5 g/dL (3.5-5.0); Alkaline Phosphatase 62 U/L (39-117); Anion Gap 18 (12-20); Aspartate Amino Transferase 21 U/L (5-37); Bilirubin Total 1.3 mg/dL (0.0-1.0); Blood Urea Nitrogen 16 mg/dL (9-16); Calcium 9.6 mg/dL (8.4-10.2); Carbon Dioxide 25 mmol/L (22-29); Chloride 103 mmol/L (96-108); Creatinine Clr Calc Pharmacy 77.8; Estimated Glomerular Filt Rate > 60; Glucose Random 132 mg/dL (60-115); Lipase 17 U/L (8-78); Potassium 4.9 mmol/L (3.3-5.1); Sodium 141 mmol/L (135-145); Total Protein 7.8 g/dL (6.5-8.0)
[2021-12-27] MEDS: Ketorolac Tromethamine 30 MG/ML VIAL IVPUSH (08:22)
[2021-12-27] MEDS: Morphine Sulfate 4 MG/ML CARTRIDGE IVPUSH (08:22)
[2021-12-27] MEDS: 0.9 % Sodium Chloride 1,000 ML 999 ML IV ×2 (08:23→09:23)
[2021-12-27] MEDS: ondansetron HCL 4 MG/2 ML VIAL IVPUSH (08:23)
[2021-12-27] MEDS: Tamsulosin HCL 0.4 MG CAPSULE PO (09:23)
[2021-12-27] MEDS: HYDROmorphone HCl 1 MG/ML SYRINGE IVPUSH (09:23)
--- NOTE | 2021-12-27 10:16 | PM.UROCN ---
History of Present Illness Consult details Consult date: 12/27/21 Narrative: Consulting complaint left proximal ureteric stone Carlton is a 61-year-old male Presents with 1 day history of left flank pain associated with nausea, vomiting Denies hematuria, dysuria Family history of stones Imaging shows 6 mm obstructing left proximal ureteric stone with left hydroureteronephrosis [id number] left hydronephrosis and perinephric edema are caused by a 0.6 cm stone within the proximal ureter near level of ureteropelvic junction. WBC 7.7, creatinine 1.02 Based on location of stone recommendation is for cystoscopy, left retrograde, left stent placement Discussed with patient and Questions answered Review of Systems Constitutional: Constitutional: Reports as per HPI and Reports no additional constitutional complaints Cardiovascular: Cardiovascular: Reports as per HPI and Reports no additional cardiovascular complaints Respiratory: Respiratory: Reports as per HPI and Reports no additional respiratory complaints Gastrointestinal: Gastrointestinal: Reports as per HPI and Reports no additional gastrointestinal complaints Genitourinary: Genitourinary: Reports as per HPI Musculoskeletal: Musculoskeletal: Reports no additional musculoskeletal complaints and Reports as per HPI Neurologic: Reports system reviewed and no additional complaints, except as documented and Reports as per HPI [facility] Social History Social History Advance Directives: No Meds Allergies Allergy/AdvReac Type Severity Reaction Status Date / Time No Known Allergies Allergy Verified 12/27/21 06:22 Physical Exam Vital Signs: Vital Signs: Last Vital Signs Temp 98.0 F 12/27/21 10:09 Pulse 69 12/27/21 09:58 Resp 18 12/27/21 09:58 BP 109/61 12/27/21 09:58 Pulse Ox 95 12/27/21 09:58 O2 Del Method 12/27/21 09:58 BMI result Body Mass Index 31.9 Const: General: cooperative, healthy appearing, comfortable and no acute distress Orientation/consciousness: patient oriented x3 HEENT: Face and sinus: Yes normal facial exam Mouth: moist mucous membranes Neck: Neck: Yes normal visual inspection, Yes full ROM and Yes trachea midline Chest: Chest palpation & inspection: normal inspection of the chest Resp: Effort & Inspection: normal respiratory effort, able to speak in complete sentences and no respiratory distress GI: Inspection: Yes normal to inspection Back/Spine/Pelvis: Cervical Spine: normal cervical lordosis Thoracic/Lumbar Spine: thoracic and lumbar spine normal to inspection Skin: General skin exam: no rashes or lesions noted Neuro: General: patient oriented x3, tone normal and moves all extremities Extrem: General: Yes normal to inspection and Yes capillary refill normal Results Labs Result diagrams: 12/27/21 07:30 12/27/21 07:30 Labs: Abnormal lab results 12/27/21 12/27/21 Range/Units 07:30 07:30 Neut % (Auto) 86.2 H (45-73) % Lymph % (Auto) 9.5 L (20-40) % Lymph # (Auto) 0.7 L (1.2-4.9) X10*3/uL Random Glucose 132 H (60-115) mg/dL Total Bilirubin 1.3 H (0.0-1.0) mg/dL Short CBC 12/27/21 Range/Units 07:30 WBC 7.7 (4.8-10.8) X10*3/uL Hgb 14.1 (14.0-18.0) g/dl Hct 42.6 (42.0-52.0) % Plt Count 207 (160-400) X10*3/uL BMP 12/27/21 07:30 Sodium 141 Potassium 4.9 Chloride 103 Carbon Dioxide 25 BUN 16 Creatinine 1.02 Calcium 9.6 Liver Function 12/27/21 Range/Units 07:30 Total Bilirubin 1.3 H (0.0-1.0) mg/dL AST 21 (5-37) U/L ALT 7 (0-40) U/L Alkaline Phosphatase 62 (39-117) U/L Albumin 4.5 (3.5-5.0) g/dL All other labs normal. Assessment and Plan (1) Ureteric stone: Status: Acute (2) Hydronephrosis concurrent with and due to calculi of kidney and ureter: Status: Acute Plan Risks, benefits and alternatives to therapy were discussed. These include but are not limited to infection, bleeding, damage to local organs and tissues, need for further interventions. Anesthetic risks regarding cardiac arrhythmia, blood clots, and potential mortality were discussed. The patient understands the typical recovery time and the outpatient nature of the procedure. After consideration of these risks the patient gives full informed consent and they wish to move ahead with the procedure. Cystoscopy, left retrograde, left stent placement Procedures Date of Service Date of Service: 12/27/21
[2021-12-27 10:27] LABS: COVID-19 Test Negative (Negative)
--- NOTE | 2021-12-27 12:09 | PHA.MEDREC ---
Pharmacy Consult ? Medication Reconciliation Pharmacy has completed the medication reconciliation. Patient confirmed all medications. Mirlande Obregon, RohitD
--- NOTE | 2021-12-27 14:02 | HO.ANESPROP2 ---
FORMERLY [facility], LATER [facility] Active Problems Active Problems: All Active Problems (Updated 12/27/21 @ 10:49 by Gabbie Mederos MD) Obstructed, uropathy (Acute) Hydronephrosis concurrent with and due to calculi of kidney and ureter (Acute) Ureteric stone (Acute) Calculus of kidney (Acute) Family History Family history of problems with anesthesia: No Surgical History History of Problems with Anesthesia: No Social History Social History Patient Tobacco Use Status: Never used Tobacco Use of substances other than those prescribed or required for medical reasons: No Advance Directives: No Meds Allergies Allergy/AdvReac Type Severity Reaction Status Date / Time No Known Allergies Allergy Verified 12/27/21 06:22 Home Medications Medication Instructions Recorded Confirmed Last Taken Type levothyroxine 175 mcg tablet 1 tab PO DAILY 12/27/21 12/27/21 12/26/21 History (Levoxyl) multivitamin 1 tab PO DAILY 12/27/21 12/27/21 12/26/21 History vitamin E 268 mg (400 unit) capsule 268 mg PO DAILY 12/27/21 12/27/21 12/26/21 History Exam Exam Date and Time: December 27, 2021 1402 Height,Weight and Vital Signs: Height 5 ft 6 in Weight 88.451 kg Last Vital Signs Temp 98.1 F 12/27/21 13:38 Pulse 70 12/27/21 13:38 Resp 20 12/27/21 13:38 BP 137/76 12/27/21 13:38 Pulse Ox 100 12/27/21 13:38 O2 Del Method 12/27/21 13:38 Pertinent Lab Results Pertinent Lab Results: Laboratory Tests 12/27/21 12/27/21 12/27/21 07:30 07:30 10:02 WBC 7.7 RBC 4.82 Hgb 14.1 Hct 42.6 MCV 88.4 MCH 29.3 MCHC 33.1 RDW 12.6 Plt Count 207 MPV 10.1 Immature Gran % (Auto) 0.3 Neut % (Auto) 86.2 H Lymph % (Auto) 9.5 L [place] % (Auto) 3.6 Eos % (Auto) 0.0 Baso % (Auto) 0.4 Lymph # (Auto) 0.7 L [place] # (Auto) 0.3 Eos # (Auto) 0.0 Baso # (Auto) 0.0 Abs Immat Gran (auto) 0.02 Absolute Neuts (auto) 6.7 Absolute Nucleated RBC 0.000 Nucleated RBC % (auto) 0.0 Sodium 141 Potassium 4.9 Chloride 103 Carbon Dioxide 25 Anion Gap 18 BUN 16 Creatinine 1.02 Estim Creat Clear Calc 77.8 Estimated GFR > 60 Random Glucose 132 H Calcium 9.6 Total Bilirubin 1.3 H AST 21 ALT 7 Alkaline Phosphatase 62 Total Protein 7.8 Albumin 4.5 Lipase 17 COVID-19 (REFUGIO) Negative COVID-19 Clin Com See Note Airway Mallampati Class: III (Perm upper lower dentures) TM Dist: >3cm Neck ROM: Full Heart: rrr Lungs: cta Assessment and Plan Assessment Anesthesia Assessment: Anesthesia Plan Discussed and Chart Reviewed Final Anesthetic Review Family History of Problems with Anesthesia: No History of Problems with Anesthesia: No NPO: Yes ASA Class: II Final Preanesthetic Review: No Changes in Pt Med Stat, Meds/Allgs Chart Reviewed and Consent Obtained/Reviewed Patient Risk: Intermediate Procedure Risk: Intermediate Anesthetic Plan Anesthetic Plan: GA Disposition: Standard PACU
--- NOTE | 2021-12-27 15:41 | MHC.SHP ---
Pre-Procedural Eval Section A Date of Service: 12/27/21 The patient is an INPATIENT: No Changes since office visit: No Cold of Flu in the past 2 weeks, No New Medical Problems, No Changes in Medication and No Patient answered all questions The History & Physical has been completed within 30 days and I have reviewed it.: Yes Section B Chief Complaint: left side pain , unable to breathe Details of Present Illness: left proximal ureteric stone with 24 hour history Relevant Social History: None Present Medications: see Short Stay Collaborative assessment Medical History: No relevant PMH History of Previous Operations: No relevant previous surgery Allergies: Allergies Allergy/AdvReac Type Severity Reaction Status Date / Time No Known Allergies Allergy Verified 12/27/21 06:22 Review of Systems Sugical H&P ROS: Negative: Constitution, Cardiovascular, Respiratory, Neurological, Psychiatric, Hem-Onc, Allergic/Immunologic, Gastrointestinal, Genitourinary, Musculoskeletal, Integumentary, Endocrine and Eyes/Ears/Nose/Throat Exam Surgical H&P Exam: Normal: HEENT, Normal: Heart, Normal: Lungs, Normal: Extremities, Normal: Abdomen, Normal: Skin and Normal: Neurological Plan Diagnosis/Plan: Unchanged ( cystoscopy, left retrograde, left stent placement) I have reviewed the history and physical and performed a pertinent physical examination on my patient. No changes have occurred unless specified.
--- NOTE | 2021-12-27 16:25 | P.OP_ITS ---
Operative Note Operative Note Date of Service: 12/27/21 Narrative: PreOperative Diagnosis: proximal left ureteric stone Post Operative Diagnosis: proximal left ureteric stone Procedure: cystoscopy left retrograde left stent placement Surgeon: Dr Nathanael Bob Anesthesia: sedation Indications for procedure: proximal obstructing left ureteric stone Procedure: After informed consent was verified the patient was brought to the operating room and placed in a supine position. Anesthesia was administered per protocol. The patient was placed in modified dorsal lithotomy position and prepped and draped in a sterile fashion. A safety pause time-out was performed. Laterality of procedure and antibiotics were confirmed, appropriate imaging was available A 22 [place] cystoscope was introduced per urethra. No abnormality was noted of urethra or bladder. Both ureteric orifices were seen in a normal position. The left ureter was cannulated with an open ended catheter and a retrograde examination was performed. filling defects seen in proximal portion of the left ureter with narrowed escape of contrast into renal pelvis . A Sensor guidewire was placed under fluoroscopy and a good coil was seen within the renal pelvis. A 6 [place] by 24 cm double J stent was advanced over the wire and up to the level of the renal pelvis under fluoroscopic and direct visualization. The stent was seen with appropriate coil within the renal pelvis and in the bladder after deployment. The patient tolerated the procedure well and was transferred in a stable condition to the recovery area. Pathology: none Drains: drain is above
== END 2021-12-27 17:55 | disposition home or self-care (01) ==
LOC: HO.ED 16:18 → HO.SSS 16:22
PROVIDERS: Internal Medicine; Emergency Provider Student in an Organized Health Care Education/Training Program; PCP Nurse Practitioner Adult Health; Visit Provider Urology
PROC: (CPT 52332; principal; 2021-12-27 13:50)
DX: N13.2 Hydronephrosis with renal and ureteral calculous obstruction (principal); E03.9 Hypothyroidism, unspecified; Z79.899 Other long term (current) drug therapy; Z20.822 Contact with and (suspected) exposure to COVID-19
CPT/HCPCS: 52332; 36415; 74176; 80053; 83690; 85025; 87635; 96361; 96374; 96375; 99285; C1758; C1769; C2617; J1170; J1885; J1956; J2250; J2270; J2405; J3010; Q9967

== ENCOUNTER 2022-01-12 09:51 | Day surgery (SDC) | payer OTHER, SELFPAY ==
--- NOTE | 2022-01-11 12:49 | HO.ANESPROP2 ---
Documented by User: Balbina Morales NP 01/11/22 12:50 HPI - Anesthesia Eval Consult details Narrative: 61yo M for Left ESWL with stent removal s/p cysto with stent placement 12/27/21 with GA-LMA 4 PMFSH Active Problems Active Problems: All Active Problems (Updated 01/05/22 @ 13:48 by Theresa Lan RN) Ureteric stone (Acute) Past Medical History Medical History Hypothyroidism PONV (postoperative nausea and vomiting) Family History Family history of problems with anesthesia: No Surgical History Surgical History History of cystoscopy Total knee replacement status History of Problems with Anesthesia: No Social History Social History Patient Tobacco Use Status: Never used Tobacco Use of substances other than those prescribed or required for medical reasons: No Are you DNR?: No Advance Directives: No Advance Directives Information Provided: Yes Meds Allergies Allergy/AdvReac Type Severity Reaction Status Date / Time No Known Allergies Allergy Verified 01/12/22 10:11 Home Medications Medication Instructions Recorded Confirmed Last Taken Type levothyroxine 175 mcg tablet 1 tab PO DAILY 12/27/21 01/12/22 12/26/21 History (Levoxyl) multivitamin 1 tab PO DAILY 12/27/21 01/12/22 12/26/21 History vitamin E 268 mg (400 unit) capsule 268 mg PO DAILY 12/27/21 01/12/22 12/26/21 History omeprazole 20 mg capsule,delayed 1 cap PO DAILY 01/05/22 01/12/22 Unknown History release Exam Exam Date and Time: January 11, 2022 1249 Pertinent Lab Results Pertinent Lab Results: Laboratory Tests 12/27/21 12/27/21 07:30 07:30 WBC 7.7 Hgb 14.1 Hct 42.6 Plt Count 207 Sodium 141 Potassium 4.9 Chloride 103 Carbon Dioxide 25 BUN 16 Creatinine 1.02 Assessment and Plan Assessment Anesthesia Assessment: Chart Reviewed Final Anesthetic Review Family History of Problems with Anesthesia: No History of Problems with Anesthesia: No Documented by User: Pipe Thurman MD 01/12/22 10:25 PMF Past Medical History Medical History Hypothyroidism PONV (postoperative nausea and vomiting) Surgical History Surgical History History of cystoscopy Total knee replacement status Social History Social History Patient Tobacco Use Status: Never used Tobacco Use of substances other than those prescribed or required for medical reasons: No Are you DNR?: No Advance Directives: No Advance Directives Information Provided: Yes Meds Allergies Allergy/AdvReac Type Severity Reaction Status Date / Time No Known Allergies Allergy Verified 01/12/22 10:11 Home Medications Medication Instructions Recorded Confirmed Last Taken Type levothyroxine 175 mcg tablet 1 tab PO DAILY 12/27/21 01/12/22 12/26/21 History (Levoxyl) multivitamin 1 tab PO DAILY 12/27/21 01/12/22 12/26/21 History vitamin E 268 mg (400 unit) capsule 268 mg PO DAILY 12/27/21 01/12/22 12/26/21 History omeprazole 20 mg capsule,delayed 1 cap PO DAILY 01/05/22 01/12/22 Unknown History release Exam Airway Mallampati Class: II TM Dist: >3cm Neck ROM: Full Loose/Missing/Broken Teeth: Yes (Upper permanent plate) Heart: rrr +[id number] Lungs: cta b/l Assessment and Plan Assessment Anesthesia Assessment: Anesthesia Plan Discussed Final Anesthetic Review NPO: Yes ASA Class: II Final Preanesthetic Review: No Changes in Pt Med Stat, Meds/Allgs Chart Reviewed, Consent Obtained/Reviewed and Anes Risks/Benef Reviewed Patient Risk: Intermediate Procedure Risk: Intermediate Assessment/Block/Sedation in SS: Assess/Block/Sedation-SS Anesthetic Plan Anesthetic Plan: GA, MAC: and Agree w/ Assess. and Plan Disposition: Standard PACU
--- NOTE | ~2022-01-12 | XR_ITS ---
EXAMINATION: XR ABDOMEN KUB CLINICAL INDICATION: Renal stone COMPARISON: Previous CT of the abdomen and pelvis November 2021 TECHNIQUE: AP view of the abdomen. FINDINGS: There is a new left internal ureteral stent in satisfactory position. There is a 6 mm stone in the lower pole of the left kidney. There are bilateral pelvic calcifications probably representing calcified phleboliths. Bowel gas pattern is normal. There are degenerative changes of the spine and hip joints. XR/XR KUB IMPRESSION: Satisfactory position of left internal ureteral stent. 6 mm left lower pole renal stone.
[2022-01-12 10:14] VITALS: BMI 33.8
[2022-01-12 10:19] VITALS: BP 139/87; PULSE 75; RESP 16; TEMP 36.6; O2SAT 99
[2022-01-12] MEDS: Scopolamine 1.5 MG PATCH.TD.3 EAR-BEHIND (10:26)
[2022-01-12] MEDS: Lactated Ringers 1,000 ML 100 ML IVCONT (10:30)
--- NOTE | 2022-01-12 11:35 | MHC.SHP ---
Pre-Procedural Eval Section A Date of Service: 01/12/22 The patient is an INPATIENT: No The History & Physical has been completed within 30 days and I have reviewed it.: Yes Section B Chief Complaint: Calculus of kidney Details of Present Illness: left renal pelvic stone with stent in place Relevant Family History (Specify if Yes): No Relevant Social History: None Present Medications: see Short Stay Collaborative assessment Medical History: No relevant PMH History of Previous Operations: Relevant previous surgery/procedure and date(s) Allergies: Allergies Allergy/AdvReac Type Severity Reaction Status Date / Time No Known Allergies Allergy Verified 01/12/22 10:11 Review of Systems Sugical H&P ROS: Negative: Constitution, Cardiovascular, Respiratory, Neurological, Psychiatric, Hem-Onc, Allergic/Immunologic, Gastrointestinal, Genitourinary, Musculoskeletal, Integumentary, Endocrine and Eyes/Ears/Nose/Throat Exam Surgical H&P Exam: Normal: HEENT, Normal: Heart, Normal: Lungs, Normal: Extremities, Normal: Abdomen, Normal: Skin and Normal: Neurological Plan Diagnosis/Plan: Unchanged (Left ESWL with cysto and left stent removal) I have reviewed the history and physical and performed a pertinent physical examination on my patient. No changes have occurred unless specified.
--- NOTE | 2022-01-12 12:32 | P.OP_ITS ---
Operative Note Operative Note Date of Service: 01/12/22 Narrative: PreOperative Diagnosis: left Renal stones with stent Post Operative Diagnosis: left Renal stones with stent Procedure: left ESWL with cysto stent removal Surgeon: Dr Nathanael Bob Anesthesia: mac/sedation Indications for procedure: The patient understands ESWL may be a staged procedure and subsequent intervention may be required based on imaging after ESWL. Quoted stone clearance rates for a solitary procedure are in the 70-80% range based primarily on stone location. They also understand there is a risk of bleeding to the kidney, infection, damage to adjacent organs, and stone migration following the procedure. - Imaging 7mm left lower pole stone with stent in place Procedure: After informed consent was verified the patient was brought to the operating room and placed in a supine position. Anesthesia was performed per protocol. Safety pause time-out was performed. Imaging was displayed in the room and laterality confirmed. ESWL was performed. The 1st 500 shocks were performed at 60 hertz. These were performed with increa sing power. Once maximum power was reached the rate was increased to 180 hertz. A total of 2500 shocks were given. Targeted imaging with ultrasound/fluoroscopy showed stone smudging suggestive of disintegration. Cystoscopy performed with stent removal left side The patient tolerated the procedure well and was transferred to the recovery area upon completion. Post procedure imaging will be organized. There was no evidence for flank discoloration
[2022-01-12 12:58] VITALS: BP 126/59; PULSE 110; RESP 18; TEMP 36.8; O2SAT 99
[2022-01-12 13:13] VITALS: BP 122/77; PULSE 91; RESP 17; O2SAT 96
[2022-01-12 13:28] VITALS: BP 127/79; PULSE 92; RESP 18; TEMP 36.2; O2SAT 95
== END 2022-01-12 14:28 | disposition home or self-care (01) ==
PROVIDERS: PCP Nurse Practitioner Adult Health; Visit Provider Urology
PROC: (CPT 50590; principal; 2022-01-12 11:30)
DX: N20.0 Calculus of kidney (principal); Z46.6 Encounter for fitting and adjustment of urinary device; E03.9 Hypothyroidism, unspecified; Z79.899 Other long term (current) drug therapy
CPT/HCPCS: 50590; 52310; 74018; J1100; J1956; J2250; J2405; J3010

== ENCOUNTER 2022-02-04 11:24 | Outpatient (REF) | payer OTHER, SELFPAY ==
--- NOTE | ~2022-02-04 | US_ITS ---
EXAMINATION: US RETROPERITONEAL LIMITED (RENAL ONLY) CLINICAL INFORMATION: Calculus of kidney. COMPARISON: X-ray KUB 01/12/2022. CT abdomen and pelvis 12/27/2021. TECHNIQUE: Real-time imaging of the kidneys. FINDINGS: RIGHT KIDNEY: 11.2 x 5.5 x 4.4 cm (SAG x AP x TRV). The kidney is normal in size, contour, and echogenicity. Renal cortical thickness is normal. No renal calculi or hydronephrosis. Benign appearing 1.3 cm renal cyst, no imaging follow-up recommended. LEFT KIDNEY: 12.1 x 5.7 x 4.4 cm (SAG x AP x TRV). The kidney is normal in size, contour, and echogenicity. Renal cortical thickness is normal. No calculi or focal parenchymal lesions. No hydronephrosis. US/US renal BI IMPRESSION: No hydronephrosis or nephrolithiasis..
== END 2022-02-04 11:25 | disposition home or self-care (01) ==
LOC: HO.HMGCX 11:24
PROVIDERS: Visit Provider Urology
DX: N20.0 Calculus of kidney (principal); N20.1 Calculus of ureter
CPT/HCPCS: 76775

== ENCOUNTER 2022-02-17 15:53 | Outpatient (REF) | payer OTHER, SELFPAY ==
[2022-02-23 19:33] LABS: Stone Source KIDNEY
== END 2022-02-17 15:54 | disposition home or self-care (01) ==
LOC: HO.LAB 15:53
PROVIDERS: Visit Provider Urology
DX: N20.0 Calculus of kidney (principal)
CPT/HCPCS: 82365; 88300

== ENCOUNTER → 2022-02-18 08:48 | Outpatient (BNVA) | payer OTHER, SELFPAY | PROVIDERS: PCP Nurse Practitioner Adult Health; Visit Provider Urology | DX: N20.1 Calculus of ureter (principal) ==

== ENCOUNTER 2022-08-31 15:01 | Outpatient (REF) | payer OTHER, SELFPAY ==
--- NOTE | ~2022-08-31 | US_ITS ---
EXAMINATION: US RETROPERITONEAL LIMITED (RENAL ONLY) CLINICAL INFORMATION: Calculus of ureter. COMPARISON: Ultrasound retroperitoneal limited (renal only) 02/04/2022. X-ray abdomen KUB 01/12/2022. CT abdomen and pelvis without contrast 12/27/2021. TECHNIQUE: Real-time imaging of the kidneys. Limited visualization due to bowel gas and body habitus. FINDINGS: RIGHT KIDNEY: 11.5 x 6.4 x 4.3 cm (SAG x AP x TRV). No hydronephrosis. No renal calculi. Renal cortical thickness is normal. Limited visualization. There is a 1.0 x 0.8 x 0.9 cm cyst lower pole right kidney with mural calcification is redemonstrated. This was better characterized on CT Scan 12/27/2021. LEFT KIDNEY: 11.3 x 5.6 x 5.0 cm (SAG x AP x TRV). No hydronephrosis. No renal calculi. Renal cortical thickness is normal. Limited visualization. US/US renal BI IMPRESSION: 1. No hydronephrosis. No renal calculi. Renal cortical thickness is normal. 2. There is a 1.0 cm right renal lower pole cyst with mural calcification redemonstrated. .
== END 2022-08-31 15:02 | disposition home or self-care (01) ==
LOC: HO.US 15:01
PROVIDERS: PCP Nurse Practitioner Adult Health; Visit Provider Urology
DX: N20.1 Calculus of ureter (principal)
CPT/HCPCS: 76775